=== PATIENT | female | born 1940 | race Caucasian/White ===

== ENCOUNTER 2021-03-29 15:42 | Emergency (ER) | payer MEDICARE, SELFPAY ==
[2021-03-29 15:56] VITALS: BP 171/89; PULSE 93; RESP 18; TEMP 37; O2SAT 93; BMI 54.5
--- NOTE | 2021-03-29 16:52 | ED_ITS ---
HPI - General Adult General: Chief complaint: General Medical Stated complaint: SEVERE PAIN IN BACK Time Seen by Provider: 03/29/21 16:11 History of Present Illness: HPI narrative: 81-year-old female presents emergency room complaining of sharp left side pain. Radiates into her abdomen. Evidently been going on for several months it is worse today. She complained of several falls at home. He also has some burning with urination. She has a history of lupus. She was seen in the clinic they took several x-rays and told her nothing was broken. She denies any rash at any time the last several months. She does report a fever at home although she is afebrile here. Denies any cough denies any chest pain. Onset (ago): month(s) Location: abdomen Radiation: back Severity: moderate Quality: burning Pain Consistency: intermittent Relieving factors: none Exacerbating factors: none Associated symptoms: Deny chest pain, confusion, cough, diaphoresis, decreased appetite, dyspnea, fevers/chills, headache(s), malaise, nausea, rash, palpitations, seizures, short of breath, syncope, vomiting or weakness Treatments prior to arrival: none Review of Systems Const: Denies: malaise or diaphoresis ENMT: Denies: throat pain, ear or mastoid pain, nasal discharge or nasal congestion Card: Denies: chest pain, palpitations or syncope Resp: Denies: dyspnea GI: Denies: nausea or vomiting : Denies: flank pain, difficulty voiding, dysuria, urinary frequency or urinary urgency Skin/Breast: Denies: rash Neuro: Denies: headache(s) or confusion Physical Exam Const: COMMON NORMALS: no acute distress GENERAL APPEARANCE: cooperative and comfortable ORIENTATION/CONSCIOUSNESS: Yes awake, Yes oriented to person, Yes oriented to place and Yes oriented to time HENMT: COMMON NORMALS: normocephalic, atraumatic, hearing grossly normal bilaterally and external ears normal HEAD & SCALP: normocephalic and atraumatic EXTERNAL EAR: Yes external ears normal Neck/C-Spine: COMMON NORMALS: no JVD Resp: COMMON NORMALS: normal respiratory effort, No retractions, No use of accessory muscles and clear to auscultation bilaterally AUSCULTATION: clear to auscultation bilaterally Cardio: COMMON NORMALS: no JVD, regular rate, regular rhythm and No murmurs present (Cardio) RATE: regular rate RHYTHM: regular rhythm GI: COMMON NORMALS: No hepatosplenomegaly present AUSCULTATION: Yes normoactive bowel sounds PALPATION: Yes Tenderness to palpation present (GI) Details: LUQ, No Guarding due to palpation present (GI) and Yes No hepatosplenomegaly present Extremity: COMMON NORMALS: normal to inspection, capillary refill normal, no clubbing, cyanosis or edema, no calf tenderness and no pedal edema Neuro: SENSORIUM/ORIENTATION: Yes oriented to person, Yes oriented to place and Yes oriented to time Skin: COMMON NORMALS: no rashes or lesions noted GENERAL SKIN EXAM: no rashes or lesions noted Course Vital Signs: Vital signs: Vital Signs Temperature 98.6 F 03/29/21 17: Pulse Rate 84 03/29/21 20:23 Respiratory Rate 17 03/29/21 20:23 Blood Pressure 133/72 03/29/21 20:23 Pulse Oximetry 91 03/29/21 20:23 MDM - General Adult MDM Narrative: Medical decision making narrative: Reviewed labs and imaging and other testing done on the patient in the chart and rib discussed with the patient. CT shows that she has an acute diverticulitis with no evidence of abscess or perforation will start on Cipro and Flagyl. She can use hydrocodone previously prescribed clear liquid diet. Additionally gave her Zofran to use as needed for nausea if she has any worsening symptoms return. Lab Data: Labs: Lab Results 03/29/21 03/29/21 03/29/21 Range/Units 16:15 16:17 16:17 WBC 14.0 H (4.0-10.0) 10^3/ uL RBC 5.70 H (4.1-5.3) 10^6/u L Hgb 15.1 (11.5-15.3) g/dL Hct 48.3 H (37.0-47.0) % MCV 84.7 (81-99) fl MCH 26.5 L (28.0-34.0) pg MCHC 31.3 (30.0-36.0) g/dL RDW 14.6 (12.1-15.1) % Plt Count 297 (130-400) 10^3/c mm MPV 9.9 (7.4-10.4) fL Neut % (Auto) 86.4 % Lymph % (Auto) 7.1 % Owsley % (Auto) 5.3 % Eos % (Auto) 0.1 % Baso % (Auto) 0.4 % Neut # (Auto) 12.10 H (1.8-7.7) 10^3/u L Lymph # (Auto) 1.0 (0.8-4.8) 10^3/u L Owsley # (Auto) 0.8 (0.2-0.9) 10^3/u L Eos # (Auto) 0.0 (0.0-0.8) 10^3/u L Baso # (Auto) 0.1 (0.0-0.1) 10^3/u L Nucleated RBC % (a uto) 0 % Nucleated RBCs # 0.0 /100WBC Sodium 136 (136-145) mmol/L Potassium 3.7 (3.5-5.1) mmol/L Chloride 95 L (98-107) mmol/L Carbon Dioxide 28 (22-29) mmol/L Anion Gap 16.7 (5-19) BUN 7 L (8-23) mg/dL Creatinine 0.5 (0.5-0.9) mg/dL GFR Calculation Not Reportable Glucose 139 H (65-115) mg/dL Calculated Osmolal ity 282 L (285-295) mOsm/k g Lactic Acid (0.5-2.2) mmol/L Calcium 9.6 (8.5-10.5) mg/dL Total Bilirubin 1.0 (0.15-1.2) mg/dL AST 19 (0-32) U/L ALT 15 (0-33) U/L Alkaline Phosphata se 72 (35-105) IU/L Total Protein 8.1 (6.6-8.7) g/dL Albumin 4.4 (3.5-5.2) g/dL Globulin 3.7 (1.3-4.6) g/dL Lipase (13-60) U/L Urine Color Yellow (Yellow) Urine Appearance Sl hazy (CLEAR) Urine pH 7 (5-7) Ur Specific Gravit y 1.005 (1.005-1.030) Urine Protein 1+ H (Negative) Urine Glucose (UA) Norm (Normal) Urine Ketones Negative (Negative) Urine Blood Neg (Negative) Urine Nitrate Negative (Negative) Urine Bilirubin Neg (Negative) Urine Urobilinogen Norm (Negative) mg/dL Ur Leukocyte Fior ase Negative (Negative) Urine RBC 0-4 H (0-2) /hpf Urine WBC 5-10 H (0-5) /hpf Ur Squamous Epith Cells 5-10 H (0-5) /hpf Amorphous Sediment Not Reportable Urine Bacteria 1+ H (NONE) /hpf 03/29/21 03/29/21 Range/Units 16:17 16:17 WBC (4.0-10.0) 10^3/ uL RBC (4.1-5.3) 10^6/u L Hgb (11.5-15.3) g/dL Hct (37.0-47.0) % MCV (81-99) fl MCH (28.0-34.0) pg MCHC (30.0-36.0) g/dL RDW (12.1-15.1) % Plt Count (130-400) 10^3/c mm MPV (7.4-10.4) fL Neut % (Auto) % Lymph % (Auto) % Owsley % (Auto) % Eos % (Auto) % Baso % (Auto) % Neut # (Auto) (1.8-7.7) 10^3/u L Lymph # (Auto) (0.8-4.8) 10^3/u L Owsley # (Auto) (0.2-0.9) 10^3/u L Eos # (Auto) (0.0-0.8) 10^3/u L Baso # (Auto) (0.0-0.1) 10^3/u L Nucleated RBC % (a uto) % Nucleated RBCs # /100WBC Sodium (136-145) mmol/L Potassium (3.5-5.1) mmol/L Chloride (98-107) mmol/L Carbon Dioxide (22-29) mmol/L Anion Gap (5-19) BUN (8-23) mg/dL Creatinine (0.5-0.9) mg/dL GFR Calculation Glucose (65-115) mg/dL Calculated Osmolal ity (285-295) mOsm/k g Lactic Acid 1.9 (0.5-2.2) mmol/L Calcium (8.5-10.5) mg/dL Total Bilirubin (0.15-1.2) mg/dL AST (0-32) U/L ALT (0-33) U/L Alkaline Phosphata se (35-105) IU/L Total Protein (6.6-8.7) g/dL Albumin (3.5-5.2) g/dL Globulin (1.3-4.6) g/dL Lipase 21 (13-60) U/L Urine Color (Yellow) Urine Appearance (CLEAR) Urine pH (5-7) Ur Specific Gravit y (1.005-1.030) Urine Protein (Negative) Urine Glucose (UA) (Normal) Urine Ketones (Negative) Urine Blood (Negative) Urine Nitrate (Negative) Urine Bilirubin (Negative) Urine Urobilinogen (Negative) mg/dL Ur Leukocyte Fior ase (Negative) Urine RBC (0-2) /hpf Urine WBC (0-5) /hpf Ur Squamous Epith Cells (0-5) /hpf Amorphous Sediment Urine Bacteria (NONE) /hpf Discharge Plan Discharge Patient Disposition: Home Clinical Impression: Diverticulitis Condition: Stable Prescriptions: New Zofran 4 mg tablet 4 mg PO Q6H PRN (Reason: nausea and vomiting) Qty: 20 RF: 0 Cipro 500 mg tablet 500 mg PO BID Qty: 20 RF: 0 Flagyl 500 mg tablet 500 mg PO BID 10 Days Qty: 20 RF: 0 No Action aspirin 325 mg Tablet 325 mg PO PRN RF: 0 hydrocodone-acetaminophen 5-325 mg tablet 1 tab PO BID PRN (Reason: Pain) RF: 0 Vitamin C 500 mg Tablet 500 mg PO DAILY RF: 0 iron 325 mg (65 mg iron) Tablet 325 mg PO Q30D RF: 0 Aleve 220 mg Tablet 220 mg PO Q12H PRN (Reason: Pain) RF: 0 Hair,Skin and Nails Tablet 1 tab PO DAILY RF: 0 turmeric 400 mg Capsule 400 mg PO DAILY RF: 0 Vitamin D3 2 cap PO DAILY RF: 0 Discharge Orders: Discharge ED (Routine); Ordered 03/29/21 Ordered By: Jaguar Agrawal Referrals: Hortencia Oshea [Primary Care Provider] - Discharge Diet: Usual diet Discharge Activity: Limit activity as instructed Patient Instructions: Opioid Safety Coding Level of Care Code ED [place] for Chg Fwd Exam Comprehensive
--- NOTE | 2021-03-29 16:52 | CTR_ITS ---
PROCEDURE INFORMATION: Exam: CT Abdomen And Pelvis With Contrast Exam date and time: 03/29/2021 4:52 PM Age: 81 years old Clinical indication: Abdominal pain; Generalized; Additional info: Abd pain x 2 days, TECHNIQUE: Imaging protocol: Computed tomography of the abdomen and pelvis with contrast. Radiation optimization: All CT scans at this facility use at least one of these dose optimization techniques: automated exposure control; mA and/or kV adjustment per patient size (includes targeted exams where dose is matched to clinical indication); or iterative reconstruction. Contrast material: OMNI 300; Contrast volume: 95 ml; Contrast route: INTRAVENOUS (IV); COMPARISON: No relevant prior studies available. RADIATION DOSE METRICS: Total DLP (mGy-cm): 2981.5 FINDINGS: Lungs: There is some subsegmental atelectasis at the lung bases. Liver: There is a diffuse decrease in hepatic parenchymal density, consistent with moderate fatty infiltration. The nodular contours of the liver and enlargement of the caudate lobe suggests a history of cirrhosis. There is mild enlargement of the liver. Gallbladder and bile ducts: There is mild hydrops of the gallbladder which measures 11 cm in length and 4 cm in diameter. There is no gallbladder wall thickening or pericholecystic fluid. Pancreas: The pancreas is normal. Spleen: The spleen demonstrates punctate calcifications, consistent with remote granulomatous organism exposure. Adrenal glands: There is nonspecific mild enlargement of the adrenal glands. Kidneys and ureters: There is a 1 cm sized simple cyst in the lower pole of the right kidney. Stomach and bowel: Moderate diverticulosis is present in the distal colon. There is an inflamed looking diverticulum in the mid transverse colon such as an image number 45 of series 4 and there is mild thickening of the adjacent colon with inflammatory stranding in the surrounding fat. This is worrisome for acute diverticulitis. Appendix: Not identified Intraperitoneal space: No free air is identified. There is no evidence of free intraperitoneal fluid. Vasculature: The aorta demonstrates mild atherosclerotic calcification. There is no evidence of an abdominal aortic aneurysm. Lymph nodes: There is periportal adenopathy with lymph nodes measuring up to 9 x 23 mm and 17 x 35 mm. There also some prominent periaortic lymph nodes measuring up to 10 mm. Urinary bladder: Unremarkable as visualized. Reproductive: There has been a hysterectomy. Bones/joints: The lumbar spine demonstrates mild degenerative changes at multiple levels. Soft tissues: Unremarkable. CT/CT abdomen pelvis w con* [id number] IMPRESSION: 1. Acute diverticulitis without abscess. 2. Mild hepatomegaly and cirrhosis. 3. Fatty liver 4. Distended gallbladder which is a nonspecific finding. 5. Periportal adenopathy COMMENTS: Consistent with the [employer]'s Incidental Findings Committee white paper (J Am Elaina Radiol 2018): Any incidental renal lesion less than 1 cm or classified as too small to characterize, or any incidental cystic renal lesion characterized as simple-appearing, is likely benign. No follow-up imaging is recommended for these lesions per consensus recommendations based on imaging criteria. Radiation Dose CTDIVOL = (mGy): DLP = 2981.5 (mGy-cm)
[2021-03-29 16:56] LABS: Basophils # 0.1 10^3/uL (0.0-0.1); Basophils % 0.4 %; Eosinophils % 0.1 %; Hematocrit 48.3 % (37.0-47.0); Hemoglobin 15.1 g/dL (11.5-15.3); Lymphocytes % 7.1 %; Mean Corpuscular HGB Conc 31.3 g/dL (30.0-36.0); Mean Corpuscular Hemoglobin 26.5 pg (28.0-34.0); Mean Corpuscular Volume 84.7 fl (81-99); Mean Platelet Volume 9.9 fL (7.4-10.4); Monocytes # 0.8 10^3/uL (0.2-0.9); Monocytes % 5.3 %; Neutrophils % 86.4 %; Nucleated Red Blood Cells % 0 %; Platelet Count 297 10^3/cmm (130-400); Red Cell Distribution Width 14.6 % (12.1-15.1)
[2021-03-29 17:05] LABS: Add Urine Microscopic? YES; Bilirubin Urine Neg (Negative); Blood Urine Neg (Negative); Glucose Urine UA Norm (Normal); Ketones Urine Negative (Negative); Leukocyte Esterase Urine Negative (Negative); Nitrate Urine Negative (Negative); Protein Urine 1+ (Negative); Specific Gravity, Urine 1.005 (1.005-1.030); Urine Appearance SL Hazy (CLEAR); Urine Color Yellow (Yellow); Urobilinogen Urine Norm (Negative); pH Urine 7 (5-7)
[2021-03-29 17:07] LABS: Bacteria Urine 1+ /hpf; RBC Urine 0-4 /hpf (0-2)
[2021-03-29 17:12] LABS: Alanine Aminotransferase 15 U/L (0-33); Albumin Level 4.4 g/dL (3.5-5.2); Alkaline Phosphatase 72 IU/L (35-105); Anion Gap 16.7 (5-19); Aspartate Amino Transferase 19 U/L (0-32); Blood Urea Nitrogen 7 mg/dL (8-23); Calcium 9.6 mg/dL (8.5-10.5); Carbon Dioxide 28 mmol/L (22-29); Chloride 95 mmol/L (98-107); Globulin 3.7 g/dL (1.3-4.6); Glucose 139 mg/dL (65-115); Osmolality Calculated 282 mOsm/kg (285-295); Potassium 3.7 mmol/L (3.5-5.1); Sodium 136 mmol/L (136-145); Total Protein 8.1 g/dL (6.6-8.7)
[2021-03-29 17:17] VITALS: BP 144/78; PULSE 83; RESP 18; TEMP 37; O2SAT 93
[2021-03-29] MEDS: iohexol 300 mg/mL 100 mL Btl IV (17:38)
[2021-03-29 18:03] VITALS: RESP 16
[2021-03-29] MEDS: morphine 4 mg/mL SDV 1 mL 2 MG IVP (18:03)
[2021-03-29] MEDS: ondansetron 2 mg/ML SDV 2 mL 4 MG IVP (18:04)
[2021-03-29 18:16] VITALS: BP 133/73; PULSE 78; RESP 18; O2SAT 94
[2021-03-29 18:19] LABS: Lactic Sepsis W/Reflex 1.9 mmol/L (0.5-2.2)
[2021-03-29 18:20] LABS: Lipase 21 U/L (13-60)
--- NOTE | 2021-03-29 18:56 | PC.NURSE ---
report from Elli Espinoza
[2021-03-29 20:23] VITALS: BP 133/72; PULSE 84; RESP 17; O2SAT 91
== END 2021-03-29 20:24 | disposition home or self-care (01) ==
PROVIDERS: Emergency Provider Family Medicine; PCP Nurse Practitioner Family
DX: K57.92 Diverticulitis of intestine, part unspecified, without perforation or abscess without bleeding (principal); Z79.82 Long term (current) use of aspirin
CPT/HCPCS: 74177; 80053; 81001; 83605; 83690; 85025; 96374; 96375; 99284; J2270; J2405; Q9967

== ENCOUNTER 2021-07-26 09:30 | Outpatient (CLI) | payer MEDICARE, SELFPAY ==
--- NOTE | 2021-07-26 | US_ITS ---
WS: [id number] DIAGNOSTIC BILATERAL DIGITAL MAMMOGRAM WITH CAD LEFT breast ultrasound, limited HISTORY: LEFT breast pain, lateral. No mass. COMPARISON: 01/08/2014 and 03/21/2011 TECHNIQUE: Bilateral craniocaudad, mediolateral oblique, and mediolateral views are submitted. Computer aided detection utilized. Breast composition: The breasts are heterogeneously dense, which may obscure small masses. Numerous scattered nodules throughout each breast appear stable over multiple prior years. There is a prior biopsy clip in the upper-outer quadrant of the LEFT breast. Vascular calcifications. No abnormality noted within the LEFT lateral breast. Ultrasound will be performed. LEFT breast ultrasound, limited. LEFT breast ultrasound directed to the lateral LEFT breast in the area of pain. There is a lobulated cyst at 2:00, 4 cm from the nipple measuring 8 x 7 x 9 mm. No soft tissue nodule or increased vascularity. There are a few minimally prominent ducts throughout the breast. No suspicious masses or shadowing. MM/[id number] IMPRESSION: BI-RADS: 2-Benign FOLLOW UP: 1 Year Follow-up [facility]
--- NOTE | 2021-07-26 09:36 | MM_ITS ---
WS: [id number] DIAGNOSTIC BILATERAL DIGITAL MAMMOGRAM WITH CAD LEFT breast ultrasound, limited HISTORY: LEFT breast pain, lateral. No mass. COMPARISON: 01/08/2014 and 03/21/2011 TECHNIQUE: Bilateral craniocaudad, mediolateral oblique, and mediolateral views are submitted. Comput er aided detection utilized. Breast composition: The breasts are heterogeneously dense, which may obscure small masses. Numerous s cattered nodules throughout each breast appear stable over multiple prior years. There is a prior bio psy clip in the upper-outer quadrant of the LEFT breast. Vascular calcifications. No abnormality note d within the LEFT lateral breast. Ultrasound will be performed. LEFT breast ultrasound, limited. LEFT breast ultrasound directed to the lateral LEFT breast in the area of pain. There is a lobulated cyst at 2:00, 4 cm from the nipple measuring 8 x 7 x 9 mm. No soft tissue nodule or increased vascul arity. There are a few minimally prominent ducts throughout the breast. No suspicious masses or shado wing. MM/[id number] IMPRESSION: BI-RADS: 2-Benign FOLLOW UP: 1 Year Follow-up
== END 2021-07-26 09:31 | disposition home or self-care (01) ==
LOC: RADSHAW 09:33
PROVIDERS: PCP Nurse Practitioner Family; Visit Provider Nurse Practitioner Family
DX: N64.4 Mastodynia (principal)
CPT/HCPCS: 76642; 77066

== ENCOUNTER → 2024-01-01 12:04 | Outpatient (BNVA) | payer MEDICARE, SELFPAY | PROVIDERS: PCP Nurse Practitioner Family; Referring Provider Registered Nurse; Visit Provider Internal Medicine | DX: I47.10 Supraventricular tachycardia, unspecified (principal); R07.9 Chest pain, unspecified; Z82.49 Family history of ischemic heart disease and other diseases of the circulatory system; R00.1 Bradycardia, unspecified; I44.0 Atrioventricular block, first degree | CPT/HCPCS: 93005; 99214 ==

== ENCOUNTER 2024-01-01 14:57 | Observation (INO) | payer MEDICARE, SELFPAY ==
[2024-01-01 15:20] VITALS: BMI 33.9
--- NOTE | 2024-01-01 15:21 | PC.NURSE ---
Patient presents to [facility] from Dr. Sánchez's office as a direct admit at 1515.
[2024-01-01 15:26] VITALS: BP 176/73; PULSE 59; RESP 22; TEMP 36.6; O2SAT 97
--- NOTE | 2024-01-01 16:54 | P.HP_ITS ---
Providers/Chief Complaint 2 Admitting Physician: Santos Sánchez M.D Primary Care Provider: [place] Chief Complaint: unstable angina History of Present Illness Maura Richey is a 83 year old female with past medical history of SVT was seen in the office today for evaluation of palpitations, falls and chest discomfort. According to patient for the last several weeks she has been having substernal chest pain radiating to the back and the left arm. She has noticed no worsening and now it is daily pain that she is experiencing. He also has palpitations and sometimes heart rate drops. Initial plan was to obtain stress test as outpatient however while in the office she started having typical chest pain again with radiation to the jaw and arms. EKG was performed that showed sinus bradycardia with no significant ST-T wave changes. However given worsening of chest pain and daily typical chest pains, decision made to proceed with admission and coronary angiogram tomorrow. Review of Systems 2 Const: Denies: fever(s) or chills Card: Reports: chest pain, palpitations, swelling of feet/ankles, lightheadedness, pre-syncope (with exertion) and dyspnea on exertion; Denies: irregular heart rhythm, orthopnea or leg pain with exertion Resp: Reports: dyspnea; Denies: productive cough or non-productive cough Musc: Reports: back pain (chronic); Denies: neck pain Neuro: Denies: headache(s) or dizziness Psych: Denies: anxiety, depression, suicidal ideation or homicidal ideation Leroy/Lymph: Reports: easy bruising and easy bleeding Medications/Allergies Home Medications Medication Instructions Recorded Confirmed Last Taken Type Vitamin D3 2 cap PO DAILY 03/29/21 01/01/24 01/01/24 14:00 History ascorbic acid (vitamin C) 500 mg 500 mg PO DAILY 03/29/21 01/01/24 01/01/24 06:00 History tablet (Vitamin C) aspirin 325 mg tablet 325 mg PO PRN 03/29/21 01/01/24 Unknown History multivitamin with minerals 1 tab PO DAILY 03/29/21 01/01/24 01/01/24 06:00 History (Hair,Skin and Nails tablet) turmeric 400 mg capsule 400 mg PO DAILY 03/29/21 01/01/24 01/01/24 06:00 History ferrous sulfate 325 mg (65 mg 325 mg PO .As directed 08/02/21 01/01/24 Unknown History iron) tablet (iron) propafenone 150 mg tablet 150 mg PO Q8H 01/01/24 01/01/24 01/01/24 14:00 History Allergies Allergy/AdvReac Type Severity Reaction Status Date / Time Penicillins Allergy Severe ALGY-Anaphy Verified 01/01/24 12:50 laxis shellfish derived Allergy Unknown Verified 01/01/24 12:50 PFSH Acute 2 PFSH: Medical History Family history of coronary artery disease Social History Smoking and tobacco/nicotine status: never used tobacco/nicotine Vitals/I&O/Wt Last Vital Signs Temp 97.9 F 01/01/24 15:26 Pulse 59 L 01/01/24 15:26 Resp 22 H 01/01/24 15:26 BP 176/73 01/01/24 15:26 Pulse Ox 97 01/01/24 15:26 O2 Del Method Room Air 01/01/24 15:26 Weight last 48 hrs Weight 168 lb Physical Exam 2 Narrative: GENERAL: Patient is alert, awake and oriented x3. [] NECK: No jugular vein distension. [] HEENT: No cyanosis. No icterus. No pallor. [] HEART: Regular S1 and S2. No murmur, rub or gallop. [] LUNGS: Clear to auscultate bilaterally. [] CENTRAL NERVOUS SYSTEM: Grossly nonfocal. [] EXTREMITIES: Lower extremities with 1+ edema bilaterally. Data 01/01/24 17:39 01/02/24 06:05 A&P Assessment and plan (1) Worsening angina: (2) Paroxysmal SVT (supraventricular tachycardia): (3) Family history of coronary artery disease: (4) Hypertension: Plan Patient has been having typical worsening chest pain symptoms concerning for unstable angina. Patient admitted directly from office. Will plan for coronary angiogram with possible PCI tomorrow. Risks and benefits of the procedure been discussed. She understands these and wants to proceed. N.p.o. past midnight. We will trend troponin. If elevated, will proceed with anticoagulation. Continue aspirin. We will obtain echocardiogram Continue telemonitoring as there is concern for falls and questionable syncope. Attestations 2 Medical Necessity Statement*: Care expected to cross 2 midnights. Patient admitted with worsening angina/unstable angina symptoms. We will proceed with coronary angigoram tomorrow. Further management based on coronary anatomy. Coding Level of Care Code Acute Code for Chg Fwd Diagnoses Worsening angina I20.0 Paroxysmal SVT (supraventricular tachycardia) I47.1 Family history of coronary artery disease Z82.49 Hypertension I10
[2024-01-01 16:55] VITALS: BP 162/75; PULSE 60; RESP 17; TEMP 36.6; O2SAT 94
--- NOTE | 2024-01-01 16:59 | USCV_ITS ---
Maura Richey Age: 83 Gender: F : 1940 Exam Date: 01/01/2024 18:12 Ordering Phys: Santos Sánchez M.D ([email or web address]) Technologist: [employer] Exam Location: [facility] [place] Indication: worsening angina. BP: 162 / 75 HR: 57 Rhythm: Sinus bradycardia Technical Quality: Adequate MEASUREMENTS (Male / Female) Normal Values 2D ECHO LV Diastolic Diameter PLAX 4.6 cm 4.2 - 5.9 / 3.9 - 5.3 cm IVS Diastolic Thickness 1.4 cm 0.6 - 1.0 / 0.6 - 0.9 cm IVS Systolic Thickness 1.4 cm LVPW Diastolic Thickness 1.4 cm 0.6 - 1.0 / 0.6 - 0.9 cm LVPW Systolic Thickness 2.6 cm LVOT Diameter 2.0 cm LV Ejection Fraction 2D Teich 61.6 % LV Ejection Fraction MOD 2C 63.5 % LV Ejection Fraction 2C AL 64.1 % LA Diameter 3.1 cm Aorta at Sinotubular Diameter 2.7 cm IVC Diameter 2.0 cm M-MODE LA Ao Ratio MM 1.2 AV Cusp Separation MM 1.1 cm DOPPLER AV Peak Velocity 163.0 cm/s LVOT Peak Velocity 72.0 cm/s AV Area Cont Eq vti 1.6 cm squared AV Area Cont Eq pk 1.3 cm squared MV Peak Velocity 83.0 cm/s MV Area PHT 2.5 cm squared Mitral E to A Ratio 0.9 TV Peak Velocity 233.5 cm/s TR Peak Velocity 251.0 cm/s TR Peak Gradient 25.2 mmHg TV Peak E Velocity 52.0 cm/s Right Atrial Pressure 3.0 mmHg Pulmonary Artery Systolic Pressu 28.2 mmHg PV Peak Velocity 113.0 cm/s FINDINGS Left Ventricle Left ventricle is normal in size. LV systolic function is normal with EF of 60 to 65%. No regional wall motion abnormalities are seen. Right Ventricle Normal in size and function Right Atrium Normal in size Left Atrium Normal in size Mitral Valve Mild mitral annular calcification seen. Mild mitral regurgitation. Aortic Valve Aortic valve is thickened and calcified. Trace aortic regurgitation. No significant stenosis Tricuspid Valve Mild tricuspid regurgitation. Pulmonary artery systolic pressure is normal. Pulmonic Valve Not well-visualized. Pericardium Normal Aorta Normal in size IVC Appears to be normal CONCLUSIONS LV systolic function is normal with EF of 60-65% Mild mitral regurgitation Trace aortic regurgitation Mild tricuspid regurgitation No comparison studies are available. Santos Sánchez MD (Electronically Signed) Final Date: 02 Jan 2024 07:53 S
[2024-01-01 17:52] LABS: Basophils # 0.1 10^3/uL (0.0-0.1); Basophils % 0.9 %; Eosinophils # 0.3 10^3/uL (0.0-0.8); Hematocrit 42.6 % (36-47); Lymphocytes # 1.2 10^3/uL (0.8-4.8); Lymphocytes % 21.4 %; Mean Corpuscular HGB Conc 30.8 g/dL (30-55); Mean Corpuscular Hemoglobin 26.7 pg (27-33); Mean Corpuscular Volume 86.9 fl (85-98); Mean Platelet Volume 9.5 fL (7.4-10.4); Monocytes # 0.5 10^3/uL (0.2-0.9); Monocytes % 8.7 %; Neutrophils # 3.54 10^3/uL (1.8-7.7); Neutrophils % 62.6 %; Nucleated Red Blood Cells % 0 %; Platelet Count 178 10^3/cmm (157-399); Red Cell Distribution Width 14.5 % (12.1-15.1); White Blood Count 5.65 10^3/uL (3.29-11.43)
[2024-01-01] MEDS: enoxaparin 40 mg/0.4 mL Syringe SUBCUT (17:59)
[2024-01-01] MEDS: dextrose 5%-sod chloride 0.45% 1,000 ML 75 ML IV (18:00)
[2024-01-01 18:06] LABS: Troponin(5th) Baseline 7 ng/L (0-10)
[2024-01-01 18:08] LABS: Alanine Aminotransferase 10 U/L (0-33); Alkaline Phosphatase 66 U/L (35-105); Anion Gap 13.8 (5-19); Aspartate Amino Transferase 13 U/L (0-32); Blood Urea Nitrogen 12 mg/dL (8-23); Calcium 9.4 mg/dL (8.5-10.5); Carbon Dioxide 29 mmol/L (22-29); Chloride 103 mmol/L (98-107); Chol HDL Ratio 3.74 mg/dL (0.0-4.40); Cholesterol 157 mg/dL (0-200); Creatinine Clr Calc Pharmacy 62.9741; Globulin 3.5 g/dL (1.3-4.6); Glucose 108 mg/dL (65-115); HDL Cholesterol 42 mg/dL (60-100); LDL Cholesterol Calculated 95 mg/dL (50-129); LDL HDL Ratio 2.26 RATIO (0.00-3.22); Osmolality Calculated 294 mOsm/kg (285-295); Potassium 3.8 mmol/L (3.5-5.1); Sodium 142 mmol/L (136-145); Total Bilirubin 0.5 mg/dL (0.15-1.2); Total Protein 7.5 g/dL (6.6-8.7); Triglycerides 98 mg/dL (0-150)
[2024-01-01 20:00] VITALS: BP 152/85; PULSE 72; RESP 24; TEMP 36.4; O2SAT 93
[2024-01-01 20:12] LABS: Troponin 5 2HR 8.33 ng/L (0-10); Troponin 5 2HR Delta 1.33 ABS# (0-10)
[2024-01-01] MEDS: propafenone 150 mg Tablet PO (21:13)
[2024-01-01 23:42] VITALS: BP 130/62; PULSE 43; RESP 17; TEMP 36.9; O2SAT 94
[2024-01-01 23:57] LABS: Troponin 5 6HR 10.16 ng/L (0-10); Troponin 5 6HR Delta 3.16 ng/L (0-12)
[2024-01-02] VITALS (7 sets, daily range): BP systolic 117–177; BP diastolic 64–80; PULSE 57–71; RESP 15–25; TEMP 36.4–36.6; O2SAT 92–97
[2024-01-02 06:39] LABS: Anion Gap 11.8 (5-19); Blood Urea Nitrogen 10 mg/dL (8-23); Calcium 9.5 mg/dL (8.5-10.5); Carbon Dioxide 30 mmol/L (22-29); Chloride 100 mmol/L (98-107); Creatinine Clr Calc Pharmacy 62.9741; Glucose 120 mg/dL (65-115); Osmolality Calculated 286 mOsm/kg (285-295); Potassium 3.8 mmol/L (3.5-5.1); Sodium 138 mmol/L (136-145)
--- NOTE | 2024-01-02 07:16 | XACV_ITS ---
Exam Room: 2 Ht: 175 cm Wt: 76 kg BSA: 1.93 m2 Gender: Female : 1940 Any Known Allergies: Shellfish Exam Priority: Routine Procedure(s): Procedure Description: Coronary angigoram Procedure Description: IVUS Procedure Description: Diagnostic procedure Procedure Description: Coronary IVUS Procedure Description: Coronary Angiography Diagnostic Cath Status: Urgent Diagnostic Findings * Left Anterior Descending has mild luminal irregularities. * Circumflex has mild to moderate luminal irregularities. * Right Coronary Artery has no significant disease. * Left Main: mild 30% ostial stenosis, TOMASA: 3 flow. * Coronary angiography shows right dominance. Interventional Findings * Procedure details: As patient was complaining of typical symptoms and patient appeared to have mild to moderate ostial left main artery stenosis in some views, we confirmed nonsignificance with IVUS. Left main artery was engaged with XB 3.0 guide catheter. IV heparin was administered to maintain anticoagulation. Run-through wire was used to cross the stenosis. IVUS was performed and MLA of over 10 mm2 was confirmed. As this was nonsignificant, guidewire and guide catheter were removed. Patient left the Body Cleaner in a stable condition.. Conclusions 1. Mild left main artery ostial stenosis 2. confirmed to be nonsignificant with IVUS.. Recommendations * Aggressive medical therapy. * Outpatient cardiology follow up in 2-4 weeks. Interventional RX Recommendation: medical therapy and/or counseling Diagnostic RX Recommendation: medical therapy and/or counseling Anticoagulation: Heparin Pressures Phase:Rest AO : 148 / 94 ( 117 ) @ 11:45:00 AM 143 / 90 ( 116 ) @ 11:48:00 AM 143 / 87 ( 114 ) @ 11:49:00 AM Clinical Evaluation EBL: 5mL-10mL Procedural Details Procedure Consent Obtained. Current Diagnosis : NSTEMI. Pre-Procedure Time Out. Identified patient by full name and date of as verbalized by the patient/guarantor. Does the consent match the physician's order: Yes. Accurate & Complete Informed Consent: Yes. Inpatient/Outpatient History & Physical on Chart: Yes. If H&P is completed, is and addenduem needed: No; If yes, is the addendum complete: N/A. Visualize and Verify Site with Patient/Guarantor: N/A. Relevant Radiology Images available: Yes. Pre-op teaching completed and patient verbalized understanding. The risks, benefits, and alternatives of sedation and/or procedure were discussed by physician. The patient agrees to continue. Procedure started. [facility] Clinical Fraility Score: 3: Managing Well. Body Cleaner Indications: ACS > 24 hours. Chest Pain Symptom Assessment: Typical Angina Symptoms. Correct patient, site and procedure confirmed by cath team. Current diagnosis: NSTEMI. PERRLA. Strong, equal hand crane ladle person bilaterally. Lungs clear x 5 lobes. IV Site on Arrival: 20 gauge in the right anticubital. IV Fluids: 0.9% NaCl at KVO. 0 mL infused prior to shrimp pond laborer. Oxygen started at 2liters/min via nasal canula. right groin was prepped with chloroprep then draped in the usual sterile fashion. right radial was prepped with chloroprep then draped in the usual sterile fashion. Baseline sample Acquired. HR: 62 BPM. Physician arrived. Vital chart was stopped. Physician scrubbed in. Immediate Pre-Procedure Time Out. Correct Patient: Yes; Correct Procedure: Yes; Correct Site: Yes; Correct Patient Position: Yes; Correct Supplies: Yes; Dried Flammable Prep: Yes; Blood Products Available: N/A;. Lidocaine 1% infiltrated to the right radial. Abimbola Amaya RT(R) was relieved by Ashley El RN, HAIR SALON MANAGER as monitoring person. Arterial access obtained. A 5 turkish TIG catheter in overthe exchange J wire. Exchange J wire out, hand injection performed through the sheath. Runthrough guidwire in through the sheath. Runthrough guidewire out. Exchange J wire in. Exchange J wire out. Multiple views taken of right coronary artery. Catheter redirected to the LCA. Multiple views taken of left coronary artery. Catheter removed over the exchange J wire. 6 turkish XB 3 guide catheter was inserted over the exchange J wire. Runthrough guidewire was advanced through the guide catheter to the CX. IVUS catheter in. Ostial LM ultrasound performed. IVUS catheter out. Wire out. Guide catheter out. Dr. Sánchez scrubbed out. A TR Band was successful obtaining hemostatsis at the Right Radial artery insertion site. Post Procedure: Pulses reassessed and unchanged. PERRLA. Strong, equal hand crane ladle person bilaterally. No VTE prophylaxis required. Medication's Wasted: Lidocaine 1% = 18 mL. Medication's Wasted: Nitro = 49.6 mg. Medication's Wasted: Heparin = 4000 Units. Medication's Wasted: Other = Versed 1 mg. Medication's Wasted: Other = Fentanyl 75 mcg. Medication's Wasted: Other = Benadryl 25 mg. Total IV fluids: 45 mL. Post-op diagnosis: Mild-Mod Ostial LM disease. Complications: none. Estimated blood loss: 5mL-10mL. Responsiveness - Normal response to verbal stimuli; alert and oriented, PERRLA. Responsiveness - Normal response to verbal stimuli; alert and oriented, PERRLA. Airway - Unaffected, no intervention required; spontaneous ventilation. Circulation: W/N/L, pulses unchanged. Nausea/Vomiting: No. Procedure completed. Vital chart was stopped. Procedure started. Access Site Site: Right Radial artery Sheath Size: 6 Fr Hemostasis Method: TR Band Hemostasis Success: Successful Procedure Medications Start: 10:26 AM Stop: 10:26 AM Medication: Solu-Medrol (methylprednisolone) Amount: 125 mg Route: I.V. Start: 10:29 AM Stop: 10:29 AM Medication: Benadryl Amount: 25 mg Route: I.V. Start: 10:32 AM Stop: 10:32 AM Medication: Versed Amount: 1 mg Route: I.V. Start: 10:38 AM Stop: 10:38 AM Medication: Nitrogylcerin Amount: 200 mcg Route: I.A. Start: 10:45 AM Stop: 10:45 AM Medication: Heparin Amount: 5000 units Route: I.V. Start: 10:56 AM Stop: 10:56 AM Medication: Nitrogylcerin Amount: 200 mcg Route: I.A. Start: 10:58 AM Stop: 10:58 AM Medication: Fentanyl Amount: 25 mcg Route: I.V. Start: 11:01 AM Stop: 11:01 AM Medication: Heparin Amount: 2000 units Route: I.V. I, the attending physician, have reviewed and verified all procedure medications. Yes, all medications given per verbal order History/Risk Factors Hypertension: Yes Dyslipidemia: No Peripheral Arterial Disease (PAD): No Myocardial Infarction ([place]): No Obesity: No Tobacco Use: Never Prior Interventions PCI: No CABG: No Valve Surgery: No Report Signatures Finalized by Santos Sánchez MD on 01/13/2024 08:46 PM
--- NOTE | 2024-01-02 09:29 | PC.CHAP ---
Pastoral Care Encounter/Spiritual Assessment Type of Contact [] Declined dog licenser visit [] Patient/Family/Request visit [] Outpatient visit [] Follow-up visit [] Physician referral [] Code/Alert [] Routine visit [] Staff referral [] Actively dying [] Patient sleeping [] Family support [] [] Out of room [] Palliative care [] [] Receiving care in room [] Pre-surgical visit [] Trauma [] Long length of stay [] ICU visit [] Other: Relational/Emotional Strength [] Patient feels connected with others/family/visitors/staff [] Distress [] Loneliness/isolation [] Abandonment Spirituality of Patient [x] Person of Karmen [] Attends Mosque of their Karmen [x] Believes in Prayer [] Reads Bible or Anglican materials [] There are Spiritual issues to be addressed Supervisor General Interventions [x] Prayer [] Active listening [] Non-anxious presence [] Spiritual/emotional support [] Crisis/trauma care [] Spiritual counseling [] Bereavement support [] Provided bereavement packet [] Provided Bible/devotional materials [] Provided toy/stuffed animal, coloring book to patient or family member [] Provided Communion [] Anointing/[place] [] Salvation [] Completed spiritual assessment [] Other: Impact on Illness or Injury [] Angry [] Fearful [] Anxious [] Often cries [] Exhaustion [] Unable to work [] Unable to attend anglican [] Unable to walk/stand [] Unable to read [] Unable to drive [] Unable to eat/drink [] Unable to sleep [] Unable to be with family [] Patient intubated [] Other: Summary Time spent with patient 10 min
[2024-01-02] MEDS: dextrose 5%-sod chloride 0.45% 1,000 ML 75 ML IV ×2 (09:47→20:28)
[2024-01-02] MEDS: propafenone 150 mg Tablet PO ×3 (09:48→20:28)
[2024-01-02] MEDS: aspirin 325 mg Tablet PO (09:48)
[2024-01-02] MEDS: diphenhydrAMINE 50 mg Capsule PO (09:48)
--- NOTE | 2024-01-02 10:31 | W.PM.OPSUD ---
Surgery/Procedure H&P Update DATE OF PROCEDURE: January 02, 2024 DATE H&P PERFORMED: 01/01/24 H&P UPDATE INFORMATION: I have reviewed H&P completed within last 30 days, I have examined patient prior to procedure and No changes to prior documentation PREOP DIAGNOSIS: Worsening angina PRIMARY INDICATION FOR PROCEDURE: Worsening angina PLANNED PROCEDURE: Left heart cath with possible percutaneous coronary intervention PATIENT REASSESSED PRIOR TO SEDATION, WITH NO CHANGE NOTED: Yes PHYSICAL EXAM: alert, oriented x 3, clear to auscultation bilaterally and regular rate & rhythm AIRWAY EVAL/ANESTHESIA PLAN: normal airway, ASA III, Local Anesthesia, Risks, benefits & alternatives of sedation and/or procedure discussed and Patient agrees to continue as planned ADDITIONAL INFORMATION: Moderate sedation
--- NOTE | 2024-01-02 11:15 | SUR.PHASEI ---
POST CATH NOTE Received patient from photo lab manager. Status post cardiac catheterization via the right radial approach. TR Band in place post cath and is hemostatic and free of s/s of hematoma. Vitals and assessments per flowsheet. Verbal post cath instructions given. Verbalized understanding. Call light in reach. Informed to call for needs.
--- NOTE | 2024-01-02 12:08 | P.PN_ITS ---
Subjective 2 Subjective: Patient had coronary angiogram today that showed mild to moderate ostial left main artery stenosis. Underwent IVUS to confirm nonsignificant stenosis. Otherwise no significant CAD. Vitals/I&O/Wt Last Vital Signs Temp 97.5 F L 01/02/24 08:00 Pulse 65 01/02/24 11:30 Resp 15 01/02/24 11:30 BP 168/72 01/02/24 11:30 Pulse Ox 95 01/02/24 11:30 O2 Del Method Room Air 01/02/24 11:41 01/01/24 01/02/24 01/02/24 22:59 06:59 14:59 Intake Total 840 / 840 200 / 1040 1000 / 1000 Output Total 325 / 325 Balance 515 / 515 200 / 715 1000 / 1000 Weight last 48 hrs Weight 168 lb Weight 168 lb Physical Exam 2 Narrative: GENERAL: Patient is alert, awake and oriented x3. [] NECK: No jugular vein distension. [] HEENT: No cyanosis. No icterus. No pallor. [] HEART: Regular S1 and S2. No murmur, rub or gallop. [] LUNGS: Clear to auscultate bilaterally. [] CENTRAL NERVOUS SYSTEM: Grossly nonfocal. [] EXTREMITIES: Lower extremities with 1+ edema bilaterally. Data 01/01/24 17:39 01/03/24 04:50 A&P Assessment and plan (1) Worsening angina: (2) Paroxysmal SVT (supraventricular tachycardia): (3) Family history of coronary artery disease: (4) Hypertension: Plan Patient's coronary angiogram demonstrated nonobstructive CAD. IVUS confirmed no significant stenosis in left main artery. We will monitor her on telemetry overnight and if stays stable, will be discharged home tomorrow on event monitor. Continue propafenone. We have stopped Cardizem. She was having bradycardic episodes. Echo showed normal LV systolic function. Attestations 2 Medical Necessity Statement*: Care expected to cross 2 midnights. Patient coronary angiogram that showed nonobstructive CAD. Plan for monitoring on telemetry till tomorrow morning. Can be discharged home with event monitor tomorrow if stays asymptomatic. Coding Level of Care Code Acute Code for [facility] Diagnoses Worsening angina I20.0 Paroxysmal SVT (supraventricular tachycardia) I47.1 Family history of coronary artery disease Z82.49 Hypertension I10
[2024-01-02] MEDS: amlodipine 10 mg Tablet PO (13:09)
[2024-01-03 00:51] VITALS: BP 127/63; PULSE 61; RESP 21; O2SAT 91
[2024-01-03 04:17] VITALS: PULSE 143; RESP 21
[2024-01-03 05:16] VITALS: BMI 33.9
[2024-01-03 05:42] LABS: Anion Gap 16.2 (5-19); Blood Urea Nitrogen 12 mg/dL (8-23); Calcium 9.8 mg/dL (8.5-10.5); Carbon Dioxide 26 mmol/L (22-29); Chloride 101 mmol/L (98-107); Creatinine Clr Calc Pharmacy 62.9741; Glucose 196 mg/dL (65-115); Osmolality Calculated 293 mOsm/kg (285-295); Potassium 4.2 mmol/L (3.5-5.1); Sodium 139 mmol/L (136-145)
[2024-01-03 07:35] VITALS: BP 152/77; PULSE 64; RESP 23; TEMP 36.3; O2SAT 94
[2024-01-03] MEDS: amlodipine 10 mg Tablet PO (08:13)
[2024-01-03] MEDS: propafenone 150 mg Tablet PO (08:13)
[2024-01-03] MEDS: dextrose 5%-sod chloride 0.45% 1,000 ML 75 ML IV (08:15)
--- NOTE | 2024-01-03 08:30 | P.DS_ITS ---
Discharge Providers Date of Admission: 01/01/24 14:57 Date of Discharge: January 03, 2024 Attending Provider at Admission: Santos Sánchez M.D Attending Provider at Discharge: Santos Sánchez M.D Primary Care Provider: [place] Diagnoses at Discharge Discharge Diagnosis (1) Worsening angina: Status: Deleted (2) Paroxysmal SVT (supraventricular tachycardia): Status: Acute (3) Family history of coronary artery disease: Status: Acute (4) Hypertension: Status: Acute Reason for Visit Reason for Visit: unstable angina Brief History: 83 year old female with past medical history of SVT was seen in the office today for evaluation of palpitations, falls and chest discomfort. According to patient for the last several weeks she has been having substernal chest pain radiating to the back and the left arm. She has noticed no worsening and now it is daily pain that she is experiencing. He also has palpitations and sometimes heart rate drops. Initial plan was to obtain stress test as outpatient however while in the office she started having typical chest pain again with radiation to the jaw and arms. EKG was performed that showed sinus bradycardia with no significant ST-T wave changes. However given worsening of chest pain and daily typical chest pains, decision made to proceed with admission and coronary angiogram tomorrow. Hospital Course Hospital Course Coronary angiogram demonstrated mild to moderate ostial left main artery stenosis confirmed to be nonsignificant with IVUS. Patient was observed and discharged home in a stable condition. Cardizem was stopped as she was having bradycardic episodes. Continued on propafenone. Has event monitor. Will follow as an outpatient. Physical Exam Narrative: GENERAL: Patient is alert, awake and oriented x3. [] NECK: No jugular vein distension. [] HEENT: No cyanosis. No icterus. No pallor. [] HEART: Regular S1 and S2. No murmur, rub or gallop. [] LUNGS: Clear to auscultate bilaterally. [] CENTRAL NERVOUS SYSTEM: Grossly nonfocal. [] EXTREMITIES: Lower extremities with 1+ edema bilaterally. Discharge Data Studies Completed and Pending Completed Studies During Hospitalization Category Date Time Status CV. echo complete* [id number] Routine Ultrasound 01/01/24 16:59 Completed Pending at discharge Category Date Time Status PURCHASING ADMINISTRATOR request for service Routine Exams 01/02/24 07:16 Taken Basic Metabolic Panel AM LABS Lab 01/04/24 04:00 Ordered Laboratory Results WBC 5.65 10^3/uL (3.29-11.43) 01/01/24 17:39 RBC 4.90 10^6/uL (3.85-5.65) 01/01/24 17:39 Hgb 13.10 g/dL (11.27-16.99) 01/01/24 17:39 Hct 42.6 % (36-47) 01/01/24 17:39 MCV 86.9 fl (85-98) 01/01/24 17:39 MCH 26.7 pg (27-33) L 01/01/24 17:39 MCHC 30.8 g/dL (30-55) 01/01/24 17:39 RDW 14.5 % (12.1-15.1) 01/01/24 17:39 Plt Count 178 10^3/cmm (157-399) 01/01/24 17:39 MPV 9.5 fL (7.4-10.4) 01/01/24 17:39 Neut % (Auto) 62.6 % 01/01/24 17:39 Lymph % (Auto) 21.4 % 01/01/24 17:39 [place] % (Auto) 8.7 % 01/01/24 17:39 Eos % (Auto) 5.0 % 01/01/24 17:39 Baso % (Auto) 0.9 % 01/01/24 17:39 Neut # (Auto) 3.54 10^3/uL (1.8-7.7) 01/01/24 17:39 Lymph # (Auto) 1.2 10^3/uL (0.8-4.8) 01/01/24 17:39 [place] # (Auto) 0.5 10^3/uL (0.2-0.9) 01/01/24 17:39 Eos # (Auto) 0.3 10^3/uL (0.0-0.8) 01/01/24 17:39 Baso # (Auto) 0.1 10^3/uL (0.0-0.1) 01/01/24 17:39 Nucleated RBC % (auto) 0 % 01/01/24 17:39 Nucleated RBCs # 0.0 /100WBC 01/01/24 17:39 Sodium 139 mmol/L (136-145) 01/03/24 04:50 Potassium 4.2 mmol/L (3.5-5.1) 01/03/24 04:50 Chloride 101 mmol/L (98-107) 01/03/24 04:50 Carbon Dioxide 26 mmol/L (22-29) 01/03/24 04:50 Anion Gap 16.2 (5-19) 01/03/24 04:50 BUN 12 mg/dL (8-23) 01/03/24 04:50 Creatinine 0.8 mg/dL (0.5-0.9) 01/03/24 04:50 GFR Calculation Not Reportable 01/03/24 04:50 Glucose 196 mg/dL (65-115) H 01/03/24 04:50 Calculated Osmolality 293 mOsm/kg (285-295) 01/03/24 04:50 Calcium 9.8 mg/dL (8.5-10.5) 01/03/24 04:50 Total Bilirubin 0.5 mg/dL (0.15-1.2) 01/01/24 17:39 AST 13 U/L (0-32) 01/01/24 17:39 ALT 10 U/L (0-33) 01/01/24 17:39 Alkaline Phosphatase 66 U/L (35-105) 01/01/24 17:39 Troponin T Baseline 7 ng/L (0-10) 01/01/24 17:39 Troponin T 120 Minute 8.33 ng/L (0-10) 01/01/24 19:33 Delta Troponin T 1.33 ABS# (0-10) 01/01/24 19:33 Troponin T Hi Sens 6Hr 10.16 ng/L (0-10) H 01/01/24 23:18 Troponin T Hi Sens 6Hr Delta 3.16 ng/L (0-12) 01/01/24 23:18 Total Protein 7.5 g/dL (6.6-8.7) 01/01/24 17:39 Albumin 4.0 g/dL (3.5-5.2) 01/01/24 17:39 Globulin 3.5 g/dL (1.3-4.6) 01/01/24 17:39 Triglycerides 98 mg/dL (0-150) 01/01/24 17:39 Cholesterol 157 mg/dL (0-200) 01/01/24 17:39 LDL Cholesterol, Calc 95 mg/dL (50-129) 01/01/24 17:39 HDL Cholesterol 42 mg/dL (60-100) L 01/01/24 17:39 LDL/HDL Ratio 2.26 RATIO (0.00-3.22) 01/01/24 17:39 Cholesterol/HDL Ratio 3.74 mg/dL (0.0-4.40) 01/01/24 17:39 Vitals Last Vital Signs Temp 97.4 F L 01/03/24 07:35 Pulse 64 01/03/24 07:35 Resp 23 H 01/03/24 07:35 BP 152/77 01/03/24 07:35 Pulse Ox 94 01/03/24 07:35 O2 Del Method Room Air 01/03/24 07:35 Discharge Plan Discharge Patient Disposition: Home Condition: Stable Prescriptions: New amlodipine 10 mg Tablet 10 mg PO DAILY Qty: 90 3RF Continued propafenone 150 mg tablet 150 mg PO Q8H aspirin 325 mg Tablet 325 mg PO PRN ascorbic acid (vitamin C) [Vitamin C] 500 mg Tablet 500 mg PO DAILY Hair,Skin and Nails Tablet 1 tab PO DAILY turmeric 400 mg Capsule 400 mg PO DAILY Vitamin D3 2 cap PO DAILY iron 325 mg (65 mg iron) tablet 325 mg PO .As directed Patient Comments: Once weekly Discharge Orders: Discharge Order (Routine); Ordered 01/03/24 Ordered By: Santos Sánchez Referrals: Hillary James FNP [Nurse Practitioner] - 7-10 days (You have a follow up appointment with Shara James NP with [facility] on February 03 at 2:30pm. ) Discharge Diet: Cardiac Discharge Activity: Increase activity as tolerated Patient Instructions: A-fib (Atrial Fibrillation) (DC), Bradycardia (DC), Opioid Safety, Post Angiogram Home Care Instructions Discharge Attestations Time Spent in Discharge Care*: less than 30 min Quality Metrics Clinical Quality Measures [ No reported AMI, CVA or VTE this stay] Coding Level of Care Code Acute Code for [facility] Diagnoses Worsening angina I20.0 Paroxysmal SVT (supraventricular tachycardia) I47.1 Family history of coronary artery disease Z82.49 Hypertension I10
[2024-01-03 09:08] VITALS: BP 152/77; PULSE 64; RESP 23; TEMP 36.3; O2SAT 94
--- NOTE | 2024-01-03 09:09 | PC.NURSE ---
Made follow up appointment with Hillary James NP in [facility] for February 03 at 2:30pm. Informed Dr Sánchez that this was the earliest that was available. said this was okay and should have results of heart monitoring by then.
--- NOTE | 2024-01-03 09:51 | PC.NURSE ---
Instruction provided to patient and spouse regarding new medications, post cardiac angiogram site care and follow up needs. Both verbalized complete understanding. IV removed intact and covered with 2x2 and coban. No s/s of bleeding. Patient taken via wheelchair to private vehicle with spouse by side.
== END 2024-01-03 09:50 | disposition home or self-care (01) ==
PROVIDERS: Admitting Provider Internal Medicine; PCP Nurse Practitioner Family; Visit Provider Internal Medicine
DX: I25.110 Atherosclerotic heart disease of native coronary artery with unstable angina pectoris (principal); Z82.49 Family history of ischemic heart disease and other diseases of the circulatory system; I10 Essential (primary) hypertension; I47.10 Supraventricular tachycardia, unspecified; Z91.81 History of falling; Z79.82 Long term (current) use of aspirin
CPT/HCPCS: 36415; 80048; 80053; 80061; 84484; 85025; 92978; 93306; 93454; 96372; 96374; 96375; 99152; 99153; C1753; C1769; C1887; C1894; G0378; G0379; J1200; J1644; J1650; J2250; J2919; J3010; J3490; J7030; J7799; Q0163; Q9967

== ENCOUNTER → 2024-02-04 13:53 | Outpatient (BNVA) | payer MEDICARE, SELFPAY | PROVIDERS: PCP Nurse Practitioner Family; Visit Provider Nurse Practitioner Family | DX: Z09 Encounter for follow-up examination after completed treatment for conditions other than malignant neoplasm (principal) | CPT/HCPCS: 99213 ==

== ENCOUNTER → 2024-04-21 09:06 | Outpatient (BNVA) | payer MEDICARE, SELFPAY | PROVIDERS: PCP Family Medicine; Visit Provider Nurse Practitioner Family | DX: I10 Essential (primary) hypertension (principal); I47.10 Supraventricular tachycardia, unspecified | CPT/HCPCS: 99214 ==

== ENCOUNTER → 2024-07-30 14:33 | Outpatient (BNVA) | payer MEDICARE, SELFPAY | PROVIDERS: PCP Family Medicine; Visit Provider Internal Medicine | DX: I47.10 Supraventricular tachycardia, unspecified (principal); I10 Essential (primary) hypertension; Z82.49 Family history of ischemic heart disease and other diseases of the circulatory system | CPT/HCPCS: 99214 ==